=== PATIENT | male | born 1970 | race Caucasian/White ===

== ENCOUNTER 2021-03-10 07:51 | Observation (INO) | payer OTHER ==
[2021-03-04 13:09] LABS: BASOPHILS % (AUTO) 0.3 % (0.0-5.0); EOSINOPHILS % (AUTO) 0.3 % (0.0-8.0); HEMATOCRIT 43.5 % (42-54); MEAN CORPUSCULAR HEMOGLOBIN 30.4 pg (27.0-33.0); MEAN CORPUSCULAR VOLUME 89.3 fL (79-99); MONOCYTES % (AUTO) 5.3 % (3.0-13.0); NEUTROPHILS % (AUTO) 68.6 % (40.0-77.0); PLATELET COUNT (AUTO) 357 K/uL (130-400); RED BLOOD CELL COUNT(AUTO) 4.87 MIL/uL (4.50-6.20); RED CELL DISTRIBUTION WIDTH 12.2 % (11.0-15.5); WHITE BLOOD COUNT (AUTO) 6.5 K/uL (4.8-10.8)
[2021-03-04 13:27] LABS: PROTHROMBIN TIME 10.9 SEC (9.6-11.6)
[2021-03-04 13:28] LABS: PARTIAL THROMBOPLASTIN TIME 26.6 SEC (26.3-35.5)
[2021-03-09 11:04] VITALS: BP 159/106
[2021-03-10] VITALS (25 sets, daily range): BP systolic 107–145; BP diastolic 56–80
[~2021-03-10] VITALS: Ht 175.3 cm; Wt 89.1 kg
[2021-03-10] MEDS: CEFAZOLIN SODIUM 1 GM VIAL IVP SCH ×3 (06:00→23:08)
[~2021-03-10 07:51] MED LIST: AEC81 PO; CHLO25TA3 PO; GABA300C PO; LACTATED RINGERS 1000ML 1,000 ML IV SCH; LOSA100T58 PO; MENS MVI PO; ROPIVICAINE 250MG+KETOROLAC 15MG+EPINEPHRINE 0.3+CLONIDINE 80 IV PRN; TAMS-1 PO; TRANEXAMIC ACID 3,000 MG in 0.9% NACL 250ML 250 ML TP SCH; VITAMIN D3 PO; [UNRECOGNIZED DRUG - OTHER] PO
[2021-03-10 09:03] LABS: POTASSIUM 3.4 mmol/L (3.5-5.1)
[2021-03-10] MEDS ORDERED: TRANEXAMIC ACID 1000MG/10ML ONE ×3 (11:15→14:29)
[2021-03-10] MEDS ORDERED: LIDOCAINE PF 100MG/5ML (2%) SYRINGE 5ML ONE (12:40)
[2021-03-10] MEDS ORDERED: PROPOFOL 10 MG/ML 20ML VIAL IV ONE (12:40)
[2021-03-10] MEDS ORDERED: ROCURONIUM 10MG/1ML SYR 10 MG/ML ML ONE ×2 (12:40→14:07)
[2021-03-10] MEDS ORDERED: FENTANYL CITRATE PF 50 MCG/1 ML 2ML VIAL ONE ×2 (12:40→17:12)
[2021-03-10] MEDS ORDERED: MIDAZOLAM HCL 1 MG/ML 2ML VIAL ONE (12:40)
[2021-03-10] MEDS ORDERED: SUCCINYLCHOLINE CHLORIDE 20 MG/ML 10 ML VIAL ONE (12:40)
[2021-03-10] MEDS ORDERED: DEXAMETHASONE SOD PHOSPHATE 10MG/ML 1ML VIAL ONE (12:41)
[2021-03-10] MEDS ORDERED: ROPIVACAINE 0.5% 5MG/ML 30ML IJ ONE (12:46)
[2021-03-10] MEDS ORDERED: EPHEDRINE SULFATE 50 MG/ML AMPULE ONE (13:12)
[2021-03-10] MEDS ORDERED: FENTANYL CITRATE PF 50 MCG/1 ML 5ML AMP IV ONE (15:20)
[2021-03-10] MEDS ORDERED: CEFAZOLIN SODIUM 1 GM VIAL ONE (16:31)
[2021-03-10] MEDS ORDERED: CEFAZOLIN SODIUM 1 GM VIAL IVP ONE (16:32)
[2021-03-10] MEDS ORDERED: NEOSTIGMINE 5MG/5ML SYR IV ONE (17:06)
[2021-03-10] MEDS ORDERED: GLYCOPYRROLATE 1 MG/5 ML SYRINGE ONE (17:06)
[2021-03-10] MEDS ORDERED: ONDANSETRON 4MG INJ ONE (17:08)
[2021-03-10] MEDS ORDERED: KETOROLAC 30MG VIAL (30MG/ML) ONE (17:09)
[2021-03-10] MEDS ORDERED: HYDROCODONE/ACETAMINOPHEN 5/325 MG TAB PO PRN (17:30)
[2021-03-10] MEDS ORDERED: ONDANSETRON 4MG INJ IVP PRN (17:30)
[2021-03-10] MEDS ORDERED: POTASSIUM CHLORIDE 10% ELIXIR 20 MEQ/15 ML UDCUP PO PRN (17:30)
[2021-03-10] MEDS ORDERED: POTASSIUM CHLORIDE 20MEQ/100ML 100 ML IV PRN (17:30)
[2021-03-10] MEDS ORDERED: HYDROCODONE/ACETAMINOPHEN 10/325 MG TAB PO PRN (17:30)
[2021-03-10] MEDS ORDERED: LIDOCAINE HCL-MPF 1% 2ML VIAL IV PRN (17:30)
[2021-03-10] MEDS ORDERED: MORPHINE 4 MG SYG IVP PRN (17:30)
[2021-03-10] MEDS: ACETAMINOPHEN 500 MG TABLET PO SCH (17:30)
[2021-03-10] MEDS: TRAMADOL HCL 50 MG TABLET PO SCH ×2 (18:00→23:07)
[2021-03-10] MEDS: 0.9%NACL 1000ML 1,000 ML IV SCH (18:55)
[2021-03-10] MEDS: FAMOTIDINE 20MG TAB PO SCH (20:35)
[2021-03-10] MEDS: GABAPENTIN 300 MG CAPSULE PO SCH (20:35)
[2021-03-11] VITALS (7 sets, daily range): BP systolic 96–115; BP diastolic 50–69
[2021-03-11] MEDS: ACETAMINOPHEN 500 MG TABLET PO SCH ×3 (00:16→17:17)
[2021-03-11] MEDS: 0.9%NACL 1000ML 1,000 ML IV SCH ×2 (03:46→13:30)
[2021-03-11 04:34] LABS: HEMATOCRIT 33.7 % (42-54); MEAN CORPUSCULAR HEMOGLOBIN 30.6 pg (27.0-33.0); MEAN CORPUSCULAR HGB CONC 32.6 g/dL (32.0-36.0); MEAN CORPUSCULAR VOLUME 93.6 fL (79-99); RED BLOOD CELL COUNT(AUTO) 3.6 MIL/uL (4.50-6.20); RED CELL DISTRIBUTION WIDTH 12.8 % (11.0-15.5); WHITE BLOOD COUNT (AUTO) 12.6 K/uL (4.8-10.8)
[2021-03-11 04:41] LABS: CREATININE 0.9 mg/dL (0.5-1.5); POTASSIUM 3.3 mmol/L (3.5-5.1)
[2021-03-11] MEDS: CEFAZOLIN SODIUM 1 GM VIAL IVP SCH (06:01)
[2021-03-11] MEDS: TRAMADOL HCL 50 MG TABLET PO SCH ×4 (06:02→23:47)
[2021-03-11] MEDS: KCL 20 MEQ ERTAB PO PRN ×3 (06:12→12:27)
[2021-03-11] MEDS: LOSARTAN 100 MG TABLET PO SCH (09:00)
[2021-03-11] MEDS: CHLORTHALIDONE 25 MG PO SCH (09:00)
[2021-03-11] MEDS: TAMSULOSIN HCL 0.4 MG CAP.ER.24H PO SCH (09:29)
[2021-03-11] MEDS: ENOXAPARIN SODIUM 30 MG/0.3 ML SQ SCH (09:29)
[2021-03-11] MEDS: FAMOTIDINE 20MG TAB PO SCH ×2 (09:29→20:30)
[2021-03-11] MEDS: POLYETHYLENE GLYCOL 3350 17 GM POWD.PACK PO SCH (09:30)
[2021-03-11] MEDS: GABAPENTIN 300 MG CAPSULE PO SCH (20:30)
[2021-03-12] MEDS: ACETAMINOPHEN 500 MG TABLET PO SCH ×2 (01:34→08:50)
[2021-03-12 04:35] VITALS: BP 120/74
[2021-03-12] MEDS: TRAMADOL HCL 50 MG TABLET PO SCH ×2 (05:52→11:42)
[2021-03-12 08:07] VITALS: BP 148/84
[2021-03-12] MEDS: LOSARTAN 100 MG TABLET PO SCH (08:49)
[2021-03-12] MEDS: FAMOTIDINE 20MG TAB PO SCH (08:49)
[2021-03-12] MEDS: TAMSULOSIN HCL 0.4 MG CAP.ER.24H PO SCH (08:49)
[2021-03-12] MEDS: ENOXAPARIN SODIUM 30 MG/0.3 ML SQ SCH (08:50)
[2021-03-12] MEDS: POLYETHYLENE GLYCOL 3350 17 GM POWD.PACK PO SCH (08:50)
[2021-03-12] MEDS: CHLORTHALIDONE 25 MG PO SCH (08:54)
[2021-03-12 11:13] VITALS: BP 130/82
[2021-03-13] MEDS ORDERED: BISACODYL 10 MG SUPP.RECT RC PRN (17:30)
== END 2021-03-12 14:10 | disposition home or self-care (01) ==
LOC: DAH 07:51 → DAHIP 07:52 → 3BH 18:44
PROVIDERS: ADMIT Orthopaedic Surgery; ATTEND Orthopaedic Surgery
DX: M16.12 Unilateral primary osteoarthritis, left hip (principal); Z20.822 Contact with and (suspected) exposure to COVID-19
CPT/HCPCS: 27130; 36415 ×3; 73503; 80048 ×2; 85025; 85027; 85610; 85730; 87635; 87641; 96372 ×2; 96374; 96375; 96376; 97039 ×3; 97116 ×3; 97161; 97530 ×2; A4215; A4221; A4222; A4223; A4606; A4649 ×6; A4663; A5120; A6219; A6223; C1776; C9803; G0378 ×42; J0171; J0330; J0690 ×5; J0735; J1100; J1650 ×2; J1885 ×2; J2001; J2250; J2270; J2405 ×2; J2704; J2710; J2795 ×2; J3010 ×3; J3490 ×5; J7030; J7040; J7120; J7050